=== PATIENT | male | born 2000 | race Caucasian/White ===

== ENCOUNTER → 2022-01-18 14:13 | Outpatient (CLI) | payer OTHER, MEDICAID, SELFPAY ==
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
== END ==
PROVIDERS: Family Provider Family Medicine; PCP Family Medicine; Referring Provider Family Medicine; Visit Provider Family Medicine
DX: R05.4 Cough syncope (principal)
CPT/HCPCS: 71046

== ENCOUNTER 2022-03-25 12:39 | Emergency (ER) | payer OTHER, MEDICAID, SELFPAY ==
[2022-03-25 13:03] VITALS: BP 131/76; PULSE 104; RESP 20; TEMP 36.8; O2SAT 99; BMI 24.3
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
--- NOTE | 2022-03-25 14:54 | ED_ITS ---
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 feel better soon. Today you had a chest abdomen CT with contrast which does not show any traumatic abnormality in your chest or abdomen, your head CT is negative for a brain bleed or fracture, your rib x-rays negative for fractures, pneumothorax or pleural effusion. I hope you start feeling better soon. I have given you medications to help treat her symptoms, please do not take any of these more frequently than every 8 hours. If you have ongoing headache symptoms and it is 8 hours from the time he received medications in the ER you may take 2 extra-strength Tylenol, 1 Benadryl, 1 800 mg ibuprofen, Zofran and 1 muscle relaxer. Please follow this up with 2 glasses of water, rest in a dark room and see if your symptoms improve. It may take a few days. You also received a steroid today which will hopefully improve her symptoms over the next 3 days. Please return if you have any new or worsening symptoms. *What to do: *Please continue to take your regular medications as directed. [ x] New medication prescriptions sent to your pharmacy: [Dmitri Perdue ] [ ] New medication written as a paper prescription [ ] No new medications given *Please follow up with your primary care provider in 2-3 days, call for an appointment. Let them know you were seen in the Emergency Department and that we asked that you be seen for follow-up. We will electronically transmit a record of today's note if your PCP is in our system *If you do not have a primary care provider please contact [phone] to [facility] with one of the [facility] primary care providers. *Return to Emergency Department if you should have any new, worsening, or concerning symptoms, such as [fever greater than 101F, chills, worsening pain, persistent vomiting or other bothersome symptoms]. Prescriptions: New diphenhydramine HCl [Benadryl] 25 mg capsule 25 mg PO TID PRN (Reason: headache) Qty: 14 0RF ondansetron 4 mg tablet,disintegrating 4 mg PO Q8H PRN (Reason: headache) Qty: 10 0RF methocarbamol 500 mg tablet 500 mg PO Q8H Qty: 14 0RF ibuprofen 800 mg tablet 800 mg PO Q8H PRN (Reason: pain) Qty: 20 0RF acetaminophen [Tylenol Extra Strength] 500 mg tablet 1,000 mg PO Q8HR Qty: 30 0RF Referrals: Fabio Landin MD [Primary Care Provider] - Stand Alone Forms: Work Release Note Visit Report Forms: Patient Portal/API <Marisela Mcnamara DO - Last Filed: 03/30/22 07:23> Cosign ED Attending Nareshature Attestation: I was immediately available in the department for consultation. Documentation has been reviewed. I agree with assessment and plan.
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
[2022-03-25] MEDS: ONDANSETRON 4 MG ODT SL (15:24)
[2022-03-25] MEDS: methocarbamoL 500 MG TABLET PO (15:24)
[2022-03-25] MEDS: HYDROCODONE/ACET 5/325 TABLET 1 TAB PO (15:24)
[2022-03-25] MEDS: diphenhydrAMINE 25 MG TABLET PO (15:24)
[2022-03-25] MEDS: DEXAMETHASONE 10 MG/ML VIAL PO (15:25)
[2022-03-25] MEDS: KETOROLAC 30 MG/ML VIAL 15 MG IM (15:25)
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
[2022-03-25] MEDS: HYDROMORPHONE 0.5 MG INJ IV (17:09)
[2022-03-25 17:13] VITALS: BP 122/84; PULSE 76; RESP 16; O2SAT 99
[2022-03-25 17:22] LABS: Add Manual Diff / Slide Review NO; Basophils Absolute Auto 0 /uL (0-100); Basophils Percent Auto 0.4 % (0-2); Eosinophils Absolute Auto 0 /uL (0-450); Eosinophils Percent Auto 0.2 % (2-4); Hematocrit 41.4 % (41-53); Hemoglobin 14.4 g/dL (13.5-17.5); Lymphocytes Absolute Auto 200 /uL (1100-4500); Lymphocytes Percent Auto 2.9 % (25-40); Mean Corpuscular HGB Conc 34.7 % (30-36); Mean Corpuscular Hemoglobin 31.9 PG (26-34); Mean Corpuscular Volume 92.1 fL (80-100); Monocytes Absolute Auto 700 /uL (0-900); Monocytes Percent Auto 9.8 % (3-14); Neutrophils Absolute Auto 6000 /uL (1500-7000); Neutrophils Percent Auto 86.7 % (50-75); Platelet Count 172 X10^3/uL (150-400); Red Cell Distribution Width 13.5 % (11.6-14.8)
[2022-03-25 17:36] LABS: Lactate (Lactic Acid) 0.7 mmol/L (0.7-2.1)
[2022-03-25 17:37] LABS: Alanine Aminotransferase 35 IU/L (<50); Albumin 4.6 g/dL (3.5-5.0); Albumin Globulin Ratio 1.4 (1.0-2.8); Alkaline Phosphatase 64 U/L (38-126); Aspartate Aminotransferase 30 IU/L (17-59); BUN Creatinine Ratio 13.7 (6-22); Bilirubin Total 0.6 mg/dL (0.2-1.3); Blood Urea Nitrogen 10 mg/dL (9-20); Calcium 9.1 mg/dL (8.4-10.2); Carbon Dioxide 23 mmol/L (22-32); Chloride 100 mmol/L (98-107); Estimated Glomerular Filt Rate > 60 mL/min (>60); Globulin 3.2 g/dL (1.7-4.1); Glucose 103 mg/dL (70-100); HEMOLYSIS < 15 (0-50); Potassium 3.6 mmol/L (3.4-5.1); Sodium 135 mmol/L (137-145); Total Protein 7.8 g/dL (6.3-8.2)
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
[2022-03-25 17:50] LABS: Appearance Urine UA CLEAR; Bilirubin Urine UA NEGATIVE (NEGATIVE); Color Urine UA YELLOW; Glucose Urine UA NEGATIVE (Negative); Ketones Urine UA 1+ (NEGATIVE); Leukocyte Esterase Urine UA NEGATIVE (NEGATIVE); Nitrite Urine UA NEGATIVE (Negative); Occult Blood Urine UA NEGATIVE (Negative); Protein Urine UA NEGATIVE (Negative); Specific Gravity Urine UA <=1.005 (1.000-1.035); Urobilinogen Urine UA 0.2 E.U./dL (0.2)
[2022-03-25 17:55] LABS: UR Morphine/Opiate cutoff 300 Negative (Negative); Ur Creatinine Normal (Normal); Ur Specific Gravity Normal (Normal); Urine Amphetamines Negative (Negative); Urine Barbiturates Negative (Negative); Urine Benzodiazepines Negative (Negative); Urine Cocaine Negative (Negative); Urine MDMA Negative (Negative); Urine Methadone Negative (Negative); Urine Methamphetamines Negative (Negative); Urine Oxycodone Negative (Negative); Urine Phencyclidine Negative (Negative); Urine Tetrahydrocannabinol Positive (Negative); Urine Tricyclic Antidepressant Negative (Negative); Urine pH Normal (Normal)
[2022-03-25 17:56] LABS: RBC Urine None Seen (0-5/HPF)
[2022-03-25 17:57] LABS: Bacteria Urine None Seen; Squamous Epithelial Cell Urine 0-1 /HPF (0-5/HPF); WBC Urine None Seen (0-5/HPF)
[2022-03-25 17:58] LABS: Culture Indicated Urine Cult Not Indicated
== END 2022-03-25 18:03 | disposition home or self-care (01) ==
PROVIDERS: Emergency Provider Nurse Practitioner Critical Care Medicine; Family Provider Family Medicine; PCP Family Medicine
DX: F07.81 Postconcussional syndrome (principal); S27.329A Contusion of lung, unspecified, initial encounter; R07.81 Pleurodynia; V89.2XXA Person injured in unspecified motor-vehicle accident, traffic, initial encounter
CPT/HCPCS: 36415; 70450; 71101; 71250; 74150; 80053; 80305; 81001; 83605; 85025; 96372; 96374; 99284; J1100; J1170; J1885